=== PATIENT | male | born 1980 | race African-American/Black ===

== ENCOUNTER 2020-01-31 14:01 | Emergency (ER) | payer OTHER ==
[2020-01-31 14:08] VITALS: BP 129/80
[2020-01-31] MEDS ORDERED: KETOROLAC TROMETHAMINE 60 MG/2 ML SDV IM ONE (14:21)
--- NOTE | 2020-01-31 14:21 | ER Document Report ---
ED Fall - General Chief Complaint: Back Injury Stated Complaint: HEAD INJURY, LEFT ARM PAIN Time Seen by Provider: 01/31/20 14:13 Primary Care Provider: [facility] [Provider Group] - Follow up as needed [facility] [Provider [facility]] - Follow up as needed Mode of Arrival: Ambulatory Information source: Patient Notes: 39-year-old male presented to ED for complaint of pain to the back of his head his left shoulder left humerus and his entire upper back. He states 4 rows of vendors that are as tall as him were leaning a constant against the wall of the truck when they moved 1 the rest of them slipped and fell on top of him most of the weight went to his back and his left shoulder and arm. He does have a small tender area to the right back of his head. He did not have any loss of consciousness no nausea or vomiting no change in orientation no loss of sensation and no change in orientation. Will treat him with Toradol IM right now get x-rays of his left shoulder left humerus and rib x-rays the left and right with AP chest TRAVEL OUTSIDE OF THE [place] IN LAST 30 DAYS: No - HPI Occurred: Just prior to arrival Where: Work Context: Fell from standing - With a 4 large dose of [employer] installs him fell on top of him Associated symptoms: None Location of injury/pain: Back, Head, Shoulder - Left shoulder and left humerus Quality of pain: Sharp, Throbbing Severity: Severe Pain Level: 5 - Related data Allergies/Adverse Reactions: No Known Allergies Allergy (Verified 01/31/20 14:13) Home Medications: denies Past Medical History - General Information source: Patient - Social History Smoking Status: Current Every Day Smoker Cigarette use (# per day): Yes - 4 cigarettes a day Chew tobacco use (# tins/day): No Smoking Education Provided: Yes - 4 minutes Frequency of alcohol use: Social Drug Abuse: None Occupation: Construction Family History: Arthritis, CVA, Hyperlipidemia, Hypertension, Thyroid Disfunction Patient has homicidal ideation: No - Past Medical History Cardiac Medical History: Reports: None Pulmonary Medical History: Reports: None EENT Medical History: Reports: None Neurological Medical History: Reports: None Renal/ Medical History: Reports: None Malignancy Medical History: Reports None GI Medical History: Reports: None Musculoskeletal Medical History: Reports Hx Musculoskeletal Trauma - Right fifth toe Skin Medical History: Reports None Psychiatric Medical History: Reports: None Traumatic Medical History: Reports: Hx Fractures - 5th toe Infectious Medical History: Reports: None Surgical Hx: Negative Past Surgical History: Reports: None - Immunizations Immunizations up to date: Yes Hx Diphtheria, Pertussis, Tetanus Vaccination: Yes Review of Systems - Review of Systems Constitutional: No symptoms reported EENT: No symptoms reported Cardiovascular: No symptoms reported Respiratory: No symptoms reported Gastrointestinal: No symptoms reported Genitourinary: No symptoms reported Male Genitourinary: No symptoms reported Musculoskeletal: No symptoms reported Skin: No symptoms reported Hematologic/Lymphatic: No symptoms reported Neurological/Psychological: No symptoms reported -: Yes All other systems reviewed and negative Physical Exam - Vital signs Vitals: Temp Pulse Resp BP Pulse Ox 98.4 F 54 L 18 129/80 H 99 01/31/20 14:07 01/31/20 14:07 01/31/20 14:07 01/31/20 14:07 01/31/20 14:07 Interpretation: Normal - General General appearance: Appears well, Alert - HEENT Head: Normocephalic, Atraumatic Eyes: Normal Pupils: PERRL - Respiratory Respiratory status: No respiratory distress Chest status: Nontender Breath sounds: Normal Chest palpation: Normal - Cardiovascular Rhythm: Regular Heart sounds: Normal auscultation Murmur: No - Abdominal Inspection: Normal Distension: No distension Bowel sounds: Normal Tenderness: Nontender Organomegaly: No organomegaly - Back Back: Normal, Tender - Upper back, Other - Abrasions superficial to the bilateral upper back. No: Vertebra tenderness - Extremities General upper extremity: Normal color, Normal ROM, Normal temperature General lower extremity: Normal inspection, Nontender, Normal color, Normal ROM, Normal temperature, Normal weight bearing. No: Zeke's sign Shoulder: Tender Arm: Tender, Ecchymosis Elbow: Tender, Abrasion, Ecchymosis - Neurological Neuro grossly intact: Yes Cognition: Normal Orientation: AAOx4 Yves Coma Scale Eye Opening: Spontaneous Yves Coma Scale Verbal: Oriented [place] Coma Scale Motor: Obeys Commands Yves Coma Scale Total: 15 Speech: Normal Motor strength normal: LUE, RUE, LLE, RLE Sensory: Normal - Psychological Associated symptoms: Normal affect, Normal mood - Skin Skin Temperature: Warm Skin Moisture: Dry Skin Color: Normal, Other - Abrasions to upper back and left elbow Course - Re-evaluation Re-evalutation: 01/31/20 16:29 Discussed x-rays with patient there was no acute injuries noted on x-ray. Discussed cleaning wounds and applying bacitracin. Discussed use of NSAIDs and muscle relaxers with patient. Prescription for Flexeril sent to the pharmacy. I did discuss use of Flexeril and that he cannot drive or work when taking the medicine. Patient verbalized understanding and agreement with treatment plan patient was discharged home. - Vital Signs Vital signs: Temp Pulse Resp BP Pulse Ox 98.4 F 54 L 18 129/80 H 99 01/31/20 14:07 01/31/20 14:07 01/31/20 14:07 01/31/20 14:07 01/31/20 14:07 - Diagnostic Test Radiology reviewed: Image reviewed, Reports reviewed Discharge - Discharge Clinical Impression: Contusion of left upper arm, initial encounter, Abrasion of left elbow, initial encounter, Contusion of left shoulder, initial encounter Fall Qualifiers: Encounter type: initial encounter Qualified Code(s): W19.XXXA - Unspecified fall, initial encounter Head contusion Qualifiers: Encounter type: initial encounter Contusion of head detail: scalp Qualified Code(s): S00.03XA - Contusion of scalp, initial encounter Contusion of back wall of thorax Qualifiers: Encounter type: initial encounter Laterality: unspecified laterality Qualified Code(s): S20.229A - Contusion of unspecified back wall of thorax, initial encounter Abrasion of upper back excluding scapular region Qualifiers: Encounter type: initial encounter Laterality: unspecified laterality Qualified Code(s): S20.419A - Abrasion of unspecified back wall of thorax, initial encounter Condition: Stable Disposition: HOME, SELF-CARE Additional Instructions: MOTOR VEHICLE ACCIDENT: You may develop some soreness and stiffness over the next two days. Mild neck and back strain is common in auto accidents, and may not be painful until the muscle becomes inflamed. But if nothing is painful now, there is no fracture, and x-rays are not needed. If you develop pain over the next couple of days, treat each tender area. Apply cold packs directly to the painful spot. Rest. Antiinflammatory pain medication, such as ibuprofen, can decrease soreness and inflammation. Most of the time, these late-developing pains go away within a few days. Most patients are back at work or school within a week. The area might be little irritable for two or three weeks. You should call the doctor, or go to the hospital, if you develop severe neck, chest, or abdominal pain, repeated vomiting, severe lightheadedness or weakness, trouble breathing, numbness or weakness in any extremity, problems with your bladder or bowel, or pain radiating down an arm or leg. HEAD INJURY PRECAUTIONS: At this point, there is no evidence that your head injury is serious. Observation is necessary, however. Take only clear liquids for the first few hours, unless told otherwise by the doctor. If no pain medication was prescribed, you may take acetaminophen according to the directions on the bottle. Do not take any medication that may alter your level of alertness (unless you've discussed it with the doctor first). Limit activity for the first 24 hours. Bed rest is best. During the first 24 hours, check to see approximately every two to three hours that the patient is easily arousable, responds normally, and can perform common tasks such as walking without difficulty. Contact your doctor or go to the hospital if any of the following things occur: Persistent vomiting, difficulty in arousing the patient, worsening or continued headache, or failure to improve as expected. Head injuries can cause symptoms that persist for a few days or even a few weeks. MUSCLE STRAIN: You have strained a muscle -- torn the fibers within the muscle. This often occurs with strenuous exertion, or during an injury that suddenly stretches the muscle. The seriousness of a strain varies. Some strains heal within days, others cause problems for months. X-rays cannot show a muscle strain. X-rays are taken only if symptoms suggest that a fracture could be present. The usual treatment of a muscle strain is rest and ice packs. Sometimes, a sling, splint, or crutches may be necessary to rest the muscle. The muscle can be used again once pain subsides. Severe strains require a special exercise and stretching program to prevent permanent stiffness and disability. Your doctor will advise you if this will be necessary. Call the doctor immediately if pain or swelling becomes severe, or if numbness or discoloration develop. CONTUSION: Your injury has resulted in a contusion -- a crushing of the deep tissues. No injury to important structures was detected during the physician's exam. Contusions vary in the amount of pain they cause, and in the length of time required for healing. Typically, the area will become bruised, and will remain painful to touch for two or three weeks. However, most patients are back to working and playing within a few days. After the initial period of rest and cold-packs, your symptoms (together with the doctor's recommendations) will determine how rapidly you can get back to full activity. Usually this means "do what feels okay, but don't do things that hurt." If re-examination was recommended, it's important to follow up as instructed. Call the doctor or return any time if pain increases, if swelling becomes severe, if you develop numbness or weakness in an injured extremity, or if any other alarming symptoms occur. ABRASIONS: An abrasion is a scraping injury of the skin. Some scarring may result. The seriousness of an abrasion is not always obvious at first. Hidden tissue damage may be present and infection may occur despite proper care. Complete healing may take from ten days to as long as a month. The healing time depends on the depth of the abrasion, and on the amount of crushing of underlying tissues from the injury. Keep the wound and dressing clean. Do not shower or bathe the area until okayed by the doctor. If the dressing gets wet, remove it and blot the wound dry, then reapply a clean dressing. Dressings should be changed every day. Sunscreen should be used for six months after the skin is healed. If any signs of infection occur (swelling, redness, increasing tenderness, red streaks, profuse purulent drainage from the abrasion, tender lumps in the armpit or groin above the abrasion, or fever), see the doctor immediately. USE OF TYLENOL (ACETAMINOPHEN): Acetaminophen may be taken for pain relief or fever control. It's much safer than aspirin, offering a wider range of "safe" dosages. It is safe during . Some brand names are Tylenol, Panadol, Datril, Anacin 3, Tempra, and Liquiprin. Acetaminophen can be repeated every four hours. The following are maximum recommended dosages: WEIGHT Dose Drops Elixir Chewable(80mg) (LBS.) drprs=droppers tsp=teaspoon 6 40 mg 0.4 ml (1/2) 6-11 80 mg 0.8 ml (full) tsp 1 tab 12-16 120 mg 1 1/2 drprs 3/4 tsp 1 1/2 tabs 17-23 160 mg 2 drprs 1 tsp 2 tabs 24-30 240 mg 3 drprs 1 1/2 tsp 3 tabs 30-35 320 mg 2 tsp 4 tabs 36-41 360 mg 2 1/4 tsp 4 1/2 tabs 42-47 400 mg 2 1/2 tsp 5 tabs 48-53 480 mg 3 tsp 6 tabs 54-59 520 mg 3 1/4 tsp 6 1/2 tabs 60-64 560 mg 3 1/2 tsp 7 tabs 65-70 600 mg 3 3/4 tsp 7 1/2 tabs 71-76 640 mg 4 tsp 8 tabs 77-82 720 mg 4 1/2 tsp 9 tabs 83-88 800 mg 5 tsp 10 tabs >89 pounds or adults 650 mg to 900 mg Acetaminophen can be repeated every four hours. Maximum dose not to exceed 4000 mg a day. These maximum recommended dosages are slightly higher than the dosages written on the product container, but these dosages are very safe and below the toxic dosage for acetaminophen. ICE PACKS: Apply ice packs frequently against the painful area. Many different schedules are recommended, such as "20 minutes on, 20 minutes off" or "one hour ice, two hours rest." If you need to work, you may need to go longer between ice treatments. You should plan to have the area ice packed AT LEAST one fourth of the time. The ice should be applied over the wrap, tape, or splint, or over a layer of cloth -- not directly against the skin. Some ice bags have a built-in cloth and can be put directly on the skin. WARM PACKS: After approximately two days, apply gentle heat (such as a heating pad or hot water bottle) for about 20 to 30 minutes about every two hours -- at least four times daily. Warmth and elevation will help you make a more rapid recovery, and will ease the pain considerably. Do not use HOT heat, and never apply heat for longer than 30 minutes. The continuous heat can invisibly damage skin and muscles -- even when no burn is seen on the surface. Damaged muscles can make you MORE sore. MUSCLE RELAXERS: Muscle relaxing medications are usually prescribed for acute muscle spasm or injury to the neck and back. They are often combined with antiinflammatory pain medication for increased relief. You may stop the muscle relaxer when the pain and stiffness have improved. Start the medication again if spasms recur. Muscle relaxers may cause drowsiness, especially with the first dose. Do not operate machinery or drive while under the effects of the medication. Most muscle relaxers last up to 24 hours. Do not combine the medication with alcohol. ORAL NARCOTIC MEDICATION: You have been given a prescription for pain control. This medication is a narcotic. It's best taken with food, as nausea can result if taken on an empty stomach. Don't operate machinery or drive within six hours of taking this medication. Do not combine this medicine with alcohol, or with any medication which can cause sedation (such as cold tablets or sleeping pills) unless you get permission from the physician. Narcotics tend to cause constipation. If possible, drink plenty of fluids and eat a diet high in fiber and fruits. Antibiotic Ointment Protection Your wounds are such that dressing them is not practical or optional. After cleansing, you should apply a thin coating of antibiotic ointment (Bacitracin, not Neosporin) to the wounds at least three times daily. This lessens infection risk, and may decrease the amount of scarring. Use a q-tip or dull butter knife, not your finger, to apply this ointment. Any debris or ooze which builds up in the ointment should be gently rubbed off with a sterile gauze pad. Harder crusting may need to be gently scrubbed off with a clean wash cloth with soap and warm water, perhaps applying a warm, wet wash cloth to the wound for ten minutes first. Development of redness, severe itching, or blistering may mean allergy to the ointment. See the doctor. Toradol Injection You have been given an injection of ketorolac tromethamine (Toradol). This is an excellent, safe drug for pain control. It also has potent antiinflammatory action. You should have significant pain relief within about one hour. Toradol is not addicting and is non-sedating. It does not interfere with driving or work. Call or return if you develop itching, hives, shortness of breath, or rash. Exercise Program for the Shoulder Since the shoulder moves in so many directions, the joint attachment is weak. Muscles provide most of the stability to the shoulder. You must exercise your shoulder to prevent painful instability or stiffening. PASSIVE - These may be begun within a few days of the injury. While standing, lean forward, allowing the arm to hang down towards the floor. Move the arm in small circles while slowly twisting your chest towards and away from the hanging arm. Do this for one minute. ACTIVE - These may be performed when the doctor gives permission. Begin with the arms at the sides. Raise the arms forward (shoulder's width apart) until they reach shoulder level. Then slowly swing both arms back until they are aiming straight out away from each other. Then bring them forward again, and finally, lower them to your sides. Repeat 20 to 30 times. As you improve, put weights in your hands for the exercise. Start with one pound, and work up to 10 pounds. Never use more than is comfortable. Athletes may work up to 30 pounds. FOLLOW-UP CARE: If you have been referred to a physician for follow-up care, call the physicia ns office for an appointment as you were instructed or within the next two days. If you experience worsening or a significant change in your symptoms, notify the physician immediately or return to the Emergency Department at any time for re-evaluation. Prescriptions: Cyclobenzaprine HCl [Flexeril 10 mg Tablet] 10 mg PO TIDP PRN #15 tab PRN Reason: For Pain Scale 3-4 Forms: Return to Work Referrals: [facility] [Provider Group] - Follow up as needed [facility] [Provider [facility]] - Follow up as needed
--- NOTE | 2020-01-31 14:59 | RADIOLOGY REPORT (SQ) ---
EXAM DESCRIPTION: HUMERUS LEFT IMAGES COMPLETED DATE/TIME: 01/31/2020 2:48 pm REASON FOR STUDY: Large stack windows fell on him knocking him down COMPARISON: 01/31/2020 NUMBER OF VIEWS: Two views. TECHNIQUE: Two radiographic images were acquired of the left humerus to include elbow and shoulder i n at least one projection. LIMITATIONS: None. FINDINGS: MINERALIZATION: Normal. BONES: No acute fracture or dislocation. No worrisome bone lesions. SOFT TISSUES: No obvious swelling or foreign body. OTHER: No other significant finding. IMPRESSION: NEGATIVE STUDY OF THE LEFT HUMERUS. NO RADIOGRAPHIC EVIDENCE OF ACUTE INJURY. TECHNICAL DOCUMENTATION: JOB ID: [id number] [email or web address]- All Rights Reserved Reading location - IP/workstation name: [email or web address]
--- NOTE | 2020-01-31 15:00 | RADIOLOGY REPORT (SQ) ---
EXAM DESCRIPTION: SHOULDER LEFT 2 OR MORE VIEWS IMAGES COMPLETED DATE/TIME: 01/31/2020 2:48 pm REASON FOR STUDY: windows fell on him knocking him down COMPARISON: None. NUMBER OF VIEWS: Three views. TECHNIQUE: Internal rotation, external rotation, and Y view images acquired of the left shoulder. LIMITATIONS: None. FINDINGS: MINERALIZATION: Normal. BONES: No acute fracture. No worrisome bone lesions. JOINTS: No dislocation. VISUALIZED LUNGS AND RIBS: No pneumothorax. No rib fracture. SOFT TISSUES: No radiopaque foreign body. OTHER: No other significant finding. IMPRESSION: NEGATIVE STUDY OF THE LEFT SHOULDER. NO RADIOGRAPHIC EVIDENCE OF ACUTE INJURY. TECHNICAL DOCUMENTATION: JOB ID: [id number] [email or web address]- All Rights Reserved Reading location - IP/workstation name: [email or web address]
--- NOTE | 2020-01-31 15:02 | RADIOLOGY REPORT (SQ) ---
EXAM DESCRIPTION: RIBS BILATERAL W/PA CXR IMAGES COMPLETED DATE/TIME: 01/31/2020 2:48 pm REASON FOR STUDY: Large stack windows fell on him knocking him down COMPARISON: None. TECHNIQUE: Frontal view of the chest and additional views of the right and left ribs acquired. NUMBER OF VIEWS: Four view. LIMITATIONS: None. FINDINGS: FRONTAL CXR: No pneumothorax. No pleural effusion. No atelectasis or infiltrates. RIBS: No displaced rib fractures. No lytic or blastic bony lesions. OTHER: No other significant finding. IMPRESSION: NO PNEUMOTHORAX. NO DISPLACED RIB FRACTURES. COMMENT: SITE OF TRAUMA/COMPLAINT MARKED/STAMP COMPLETED: NO. TECHNICAL DOCUMENTATION: JOB ID: [id number] 2010 [email or web address]- All Rights Reserved Reading location - IP/workstation name: [email or web address]
== END 2020-01-31 16:34 | disposition home or self-care (01) ==
LOC: ER 14:01
DX: S40.022A Contusion of left upper arm, initial encounter (principal); S40.012A Contusion of left shoulder, initial encounter; S00.03XA Contusion of scalp, initial encounter; S20.229A Contusion of unspecified back wall of thorax, initial encounter; S50.00XA Contusion of unspecified elbow, initial encounter; S20.412A Abrasion of left back wall of thorax, initial encounter; S20.411A Abrasion of right back wall of thorax, initial encounter; S50.312A Abrasion of left elbow, initial encounter; M89.8X2 Other specified disorders of bone, upper arm; W18.09XA Striking against other object with subsequent fall, initial encounter; W19.XXXA Unspecified fall, initial encounter; Y99.0 Civilian activity done for income or pay; F17.210 Nicotine dependence, cigarettes, uncomplicated; Z71.6 Tobacco abuse counseling
CPT/HCPCS: 99284; 96372; 73060; 71111; 73030; J1885

== ENCOUNTER 2020-02-06 08:21 | Emergency (ER) | payer OTHER ==
--- NOTE | 2020-02-06 09:21 | ER Document Report ---
ED General Pain - General Chief Complaint: Back Pain Stated Complaint: REVISIT/BACK AND SHOULDER PAIN Time Seen by Provider: 02/06/20 09:02 Mode of Arrival: Ambulatory Information source: Patient Notes: Patient is a 39-year-old male returns emergency room continued complaint of right shoulder and posterior back pain. Patient was involved in a injury sustained on 01/31/2020 while at work. He states that 5 triple pane windows fell on him while at work. This occurred on 01/31/2020. Patient was x-rayed from his right shoulder and rib areas and was at home on muscle relaxers. Patient also states that the abrasion he thinks looks worse than it did on first presentation. Patient denies any new injuries. He also states he has not been back to work since it occurred. Was not able to follow-up with a primary care provider. Denies any increasing shortness of breath. TRAVEL OUTSIDE OF THE [place] IN LAST 30 DAYS: No - HPI Onset: Last week Onset/Duration: Constant, Persistent Quality of pain: Achy, Sharp Severity: Moderate Pain Level: 3 Context: General body pain Typical of prior episodes of painful crisis: Yes Exacerbated by: Movement Relieved by: Denies Similar symptoms previously: Yes Recently seen / treated by doctor: Yes - Related Data Allergies/Adverse Reactions: No Known Allergies Allergy (Verified 02/06/20 09:03) Past Medical History - General Information source: Patient - Social History Smoking Status: Never Smoker Chew tobacco use (# tins/day): No Frequency of alcohol use: None Drug Abuse: None Lives with: Family Family History: Reviewed & Not Pertinent, Arthritis, CVA, Hyperlipidemia, Hypertension, Thyroid Disfunction Patient has homicidal ideation: No Musculoskeletal Medical History: Reports Hx Musculoskeletal Trauma - Right fifth toe Traumatic Medical History: Reports: Hx Fractures - 5th toe - Immunizations Immunizations up to date: Yes Hx Diphtheria, Pertussis, Tetanus Vaccination: Yes Review of Systems - Review of Systems Constitutional: No symptoms reported EENT: No symptoms reported Cardiovascular: No symptoms reported Respiratory: No symptoms reported Gastrointestinal: No symptoms reported Genitourinary: No symptoms reported Male Genitourinary: No symptoms reported Musculoskeletal: See HPI, Muscle pain Skin: No symptoms reported Hematologic/Lymphatic: No symptoms reported Neurological/Psychological: No symptoms reported -: Yes All other systems reviewed and negative Physical Exam - Vital signs Vitals: Temp Pulse Resp BP Pulse Ox 98.2 F 60 16 131/78 H 100 02/06/20 08:24 02/06/20 08:24 02/06/20 08:24 02/06/20 08:24 02/06/20 08:24 Interpretation: Hypertensive - Notes Notes: PHYSICAL EXAMINATION: GENERAL: Patient is a 39-year-old male who is no apparent distress on physical exam today. He does appear slightly uncomfortable. EYES: Pupils equal round and reactive to light, extraocular movements intact, sclera anicteric, conjunctiva are normal. NECK: Examination patient's cervical spine shows some mild reproducible tenderness to palpation along the inferior posterior portion of the C5 5 C6. The patient displays good range of motion with only mild discomfort. LUNGS: Breath sounds clear to auscultation bilaterally and equal. No wheezes rales or rhonchi. HEART: Regular rate and rhythm without murmurs ABDOMEN: Soft, nontender, nondistended abdomen. No guarding, no rebound. No masses appreciated. Musculoskeletal: Examination patient's back shows mild tenderness in the upper trapezius to palpation. With noted spasms. Also there is some tenderness along the right scapular border. Patient does display minimal range of motion deficit with anterior shoulder discomfort and pain. He also displays good floor finisher strength in bilateral hands. There is also good strength with the upper extremity a gainst resistance both at the elbows and at the wrist. Patient has slight discomfort with shoulder shrugs against resistance. NEUROLOGICAL: Normal speech, normal gait. Normal sensory, motor exams . PSYCH: Normal mood, normal affect. SKIN: Examination patient's area of concern also is that the skin on his right scapular area. Patient has an area approximately 6 to 7 cm long by about 4 cm wide of a abrasion that appear to be healing very well. No warmth or erythema noted to that area. It is slightly tender to palpate. But the healing is doing well. No further involvement with this abrasion is necessary at this time secondary to how well it is healing. Course - Re-evaluation Re-evalutation: 02/06/20 11:22 Patient's x-rays were redone secondary to the point of possible occult fracture being missed originally. This came back also negative. Patient does state that he is going to go ahead and file for Worker's Comp. have explained to him that he is going to need to follow-up with someone outpatient his primary care provider or work will provide him with a physician to see. Meantime we will place patient on some diclofenac and he can continue with the Flexeril. I will send him back to work in Wednesday light duty no lifting or moving both 15 pounds till evaluated by his primary care provider and/or workers comp. - Vital Signs Vital signs: Temp Pulse Resp BP Pulse Ox 98.2 F 70 18 130/78 H 99 02/06/20 11:44 02/06/20 11:44 02/06/20 11:44 02/06/20 11:44 02/06/20 11:44 Discharge - Discharge Clinical Impression: Contusion of rib on right side Qualifiers: Encounter type: subsequent encounter Qualified Code(s): S20.211D - Contusion of right front wall of thorax, subsequent encounter Contusion of back wall of thorax Qualifiers: Encounter type: subsequent encounter Laterality: right Qualified Code(s): S20.221D - Contusion of right back wall of thorax, subsequent encounter Abrasion of right shoulder area Qualifiers: Encounter type: subsequent encounter Qualified Code(s): S40.211D - Abrasion of right shoulder, subsequent encounter Condition: Stable Disposition: HOME, SELF-CARE Instructions: Ice Packs ([facility]), Muscle Strain ([facility]), Warm Packs ([facility]) Additional Instructions: As we discussed you will need to follow-up with either your primary care provider or your Worker's Comp. physician. You can ice down to the areas that hurt 3 times a day or you may use moist heat in place of it at this point. There is any back to work on Wednesday light duty no lifting or pulling more than approximately 15 pounds until seen or examined by primary or Worker's Comp. Prescriptions: Diclofenac Sodium 75 mg PO BIDP PRN #20 tablet.dr FITZGERALD Reason: Forms: Elevated Blood Pressure, Special Work Note, Smoking Cessation Education, Return to Work
--- NOTE | 2020-02-06 10:52 | RADIOLOGY REPORT (SQ) ---
EXAM DESCRIPTION: RIBS RIGHT W/PA CHEST IMAGES COMPLETED DATE/TIME: 02/06/2020 10:34 am REASON FOR STUDY: pain COMPARISON: None. TECHNIQUE: Frontal view of the chest and additional views of the right ribs acquired. NUMBER OF VIEWS: Five views. LIMITATIONS: None. FINDINGS: FRONTAL CXR: The cardiomediastinal silhouette and pulmonary vasculature are within normal limits. There is no consolidation, pleural effusion or pneumothorax. RIBS: No displaced rib fractures. OTHER: No other finding. IMPRESSION: 1. No acute cardiopulmonary process. 2. No displaced right-sided rib fractures. COMMENT: SITE OF TRAUMA/COMPLAINT MARKED/STAMP COMPLETED: YES. TECHNICAL DOCUMENTATION: JOB ID: [id number] 2010 [employer]- All Rights Reserved Reading location - IP/workstation name: [email or web address]
--- NOTE | 2020-02-06 10:54 | RADIOLOGY REPORT (SQ) ---
EXAM DESCRIPTION: CERV SP 3 VIEW OR LESS IMAGES COMPLETED DATE/TIME: 02/06/2020 10:34 am REASON FOR STUDY: pain continues/ COMPARISON: None. NUMBER OF VIEWS: Three views. TECHNIQUE: AP, lateral and odontoid radiographic images acquired of the cervical spine. LIMITATIONS: None. FINDINGS: MINERALIZATION: Normal. ALIGNMENT: Anatomic. There is no atlantoaxial dissociation on the odontoid view. VERTEBRAE: The cervical vertebral body heights are preserved. There is no fracture. DISCS: The intervertebral disc spaces are preserved. HARDWARE: None in the spine. SOFT TISSUES: No abnormality. OTHER: No other finding. IMPRESSION: No acute fracture or malalignment of the cervical spine. TECHNICAL DOCUMENTATION: JOB ID: [id number] 2010 [employer]- All Rights Reserved Reading location - IP/workstation name: [email or web address]
[2020-02-06 11:45] VITALS: BP 130/78
== END 2020-02-06 11:44 | disposition home or self-care (01) ==
LOC: ER 08:21
DX: S20.211D Contusion of right front wall of thorax, subsequent encounter (principal); S20.221D Contusion of right back wall of thorax, subsequent encounter; S40.211D Abrasion of right shoulder, subsequent encounter; M54.9 Dorsalgia, unspecified; M25.511 Pain in right shoulder; M79.10 Myalgia, unspecified site; W22.8XXD Striking against or struck by other objects, subsequent encounter; Z79.899 Other long term (current) drug therapy
CPT/HCPCS: 72040; 99283

== ENCOUNTER 2020-07-08 09:55 | Emergency (ER) | payer OTHER ==
[2020-07-08 10:07] VITALS: BP 136/69
[2020-07-08] MEDS ORDERED: KETOROLAC TROMETHAMINE 60 MG/2 ML SDV IM ONE (10:35)
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
== END 2020-07-08 11:00 | disposition home or self-care (01) ==
LOC: ER 09:55
DX: M79.18 Myalgia, other site (principal); Y04.8XXA Assault by other bodily force, initial encounter; Y99.0 Civilian activity done for income or pay; F17.210 Nicotine dependence, cigarettes, uncomplicated
CPT/HCPCS: 99284; 96372; J1885